=== PATIENT | male | born 1930 | race Caucasian/White ===

== ENCOUNTER 2017-12-25 18:46 | Inpatient (IN) | payer OTHER ==
[~2017-12-25] VITALS: Ht 154.9 cm; Wt 66.7 kg
--- NOTE | ~2017-12-25 | PR ---
[place], [place] PROGRESS NOTE NAME: TEODORO BAE UNIT #: [id number] ROOM: 309 DOCTOR: LIZANDRO FULTON MD BIRTHDATE: [birth year] DOS: 12/31/2017 CHIEF COMPLAINT: "I didn't sleep last night. I guess I don't know what's up." SUMMARY OF THE VISIT: The patient was interviewed as he was resting quietly in bed. He reported to us that he did not sleep at all last night, although nursing documents that he slept 8-10 hours of uninterrupted sleep. He was rather vague, but still pleasant. He is fixated still on leaving and going home. He voiced no other complaints. There was no agitation or aggression, no mood debility, no hostility in anyway. He does appear to be tolerating the current medication regimen well and I see no sedation, somnolence, extrapyramidal symptoms or tardive dyskinesia. MENTAL STATUS: He is alert and oriented to person, place and that he knows he is in the hospital, but not to time. Mood does seem to be trending towards euthymia. Affect is more appropriate. There is no jin or hypomania. Short-term memory remains problematic. PLAN: I will maximize now the dose of the Exelon patch, bringing it from 9.5 to 13.3 mg a day. Continue to engage in individual and mcduffie milieu activity with the ultimate plan to return to the least restrictive environment when psychiatrically stable. LIZANDRO FULTON MD CM:PNTRANS [id number] LIZANDRO FULTON MD 01/01/18 0412 interface
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
--- NOTE | ~2017-12-25 | PR ---
[place], [place] PROGRESS NOTE NAME: TEODORO BAE UNIT #: [id number] ROOM: 309 DOCTOR: LIZANDRO FULTON MD BIRTHDATE: [birth year] DOS: 01/04/2018 CHIEF COMPLAINT: "Good morning doctor. Do I get to go soon?" SUMMARY OF THE VISIT: The patient was interviewed as he was sitting in his room once again. He engaged in brief superficial conversation that was pleasant. He voiced no complaints other than he wants to go home. MENTAL STATUS: He is alert and oriented to person, place, but not time. Mood is euthymic. Affect is appropriate. Speech rate and pattern is within normal limits with some sparsity of thought and processing issues. There is no hypomania, jin or psychosis. There is no agitation or aggression. He denies suicidal, homicidal, or self-injurious thoughts. Memory for short term events continues to be problematic. PLAN: I will maximize out the dose of Namenda, bringing it to 10 mg b.i.d. maintaining Exelon patch and other psychotropics, returning then to assisted living when stable. LIZANDRO FULTON MD CM:PNTRANS [phone] LIZANDRO FULTON MD 01/04/188 interface
--- NOTE | ~2017-12-25 | PR ---
[place], [place] PROGRESS NOTE NAME: TEODORO BAE UNIT #: [id number] ROOM: 309 DOCTOR: LIZANDRO FULTON MD BIRTHDATE: [birth year] DOS: 01/02/2018 CHIEF COMPLAINT: "I don't know. I am just going wherever you tell me to do." SUMMARY OF THE VISIT: The patient was interviewed as he was reading the newspaper in his room. He reported that he got up and got ready, had breakfast and is feeling well and is hopeful to go home soon or at least leave the hospital. He could not tell me how long he has been here and tends to still be very vague and disjointed in his thinking. He was pleasant, however. MENTAL STATUS: He is alert and oriented to person, place, not necessarily time. Mood does seem to be more euthymic. Affect is more appropriate. There is no jin, hypomania or psychosis. Memory for short-term events continues to be problematic, but otherwise he is intact. PLAN: We will engage in individual and mcduffie milieu activity. We will increase his Namenda to 10 mg a day to augment the effectiveness of the Exelon patch, returning to the least restrictive environment when psychiatrically stable. LIZANDRO FULTON MD CM:PNTRANS [id number] LIZANDRO FULTON MD 01/02/18 1418 interface
--- NOTE | ~2017-12-25 | PR ---
[place], [place] PROGRESS NOTE NAME: TEODORO BAE UNIT #: [id number] ROOM: 309 DOCTOR: LEEANN ARGUELLO DO BIRTHDATE: [birth year] DOS: 12/29/2017 CHIEF COMPLAINT: "I'm fine. Are you going to let me out of here?" SUMMARY OF VISIT: This is an 87-year-old male who was interviewed this morning in the lounge sitting and eating breakfast. The patient states that he slept well and per nursing staff, the patient did sleep 8 hours last night. They also stated that the patient's daughters who have power of commercial attorney want the patient to be placed in the senior living; however, the patient has voiced that he wants to go back home. When Dr. Canales spoke to the patient over the weekend, he states that the patient mentioned to him that he believes that his home appliances are talking to him and controlling him. When we prompted the patient today regarding his home situation, the patient states that a couple of his appliances do not work, but others worked okay. He did not mention anything regarding his appliances controlling his thoughts. He does believe that people are confabulating him and that someone does not want him here, but he is unable to express who that certain someone is. The patient states that he enjoys the food here and that it is excellent; however, they give a lot of food during mealtimes and he would like a toothpick. MENTAL STATUS EXAMINATION: The patient is alert and oriented to person and place. The patient's mood is depressed and flat affect. There is no jin or hypomania. There are no overt auditory or visual hallucinations, delusions or paranoia. Short-term memory is poor. PLAN: 1. Increase his Exelon patch to 9.5 mg daily. 2. Start Risperdal 0.5 mg b.i.d. 3. We will continue to engage patient in individual and mcduffie milieu activity, returning to the least restrictive environment when psychiatrically stable. Discharge will depend on medical and psychiatric status at that time. ADDENDUM Dr. Fulton 01/14/18 10:48 am: Above note reviewed. Agree with observations, recommendations, and overall treatment plan. Leeann Arguello DO [place], [place] PROGRESS NOTE NAME: TEODORO BAE UNIT #: [id number] ROOM: 309 DOCTOR: LEEANN ARGUELLO DO BIRTHDATE: [birth year] LIZANDRO FULTON MD CM:PNTRANS [phone] LEEANN ARGUELLO DO 01/14/18 1053 JUNG [email or web address].[email or web address]
--- NOTE | ~2017-12-25 | PR ---
[place], [place] PROGRESS NOTE NAME: TEODORO BAE UNIT #: [id number] ROOM: 309 DOCTOR: LIZANDRO FULTON MD BIRTHDATE: [birth year] DOS: 01/01/2018 CHIEF COMPLAINT: "Who is going to pay for this breakfast, and oh by the way I need a new toothbrush." SUMMARY OF THE VISIT: The patient was interviewed as he just sat down to eat breakfast. He engaged readily in conversation. He at times did appear rather perplexed and bewildered but overall did attempt to engage in normal conversation. There is still an air of confusion about him. There was no agitation, aggression or mood lability noted. Also, there was no medication side effects evident. There was no sedation, somnolence, extrapyramidal symptoms, tardive dyskinesia or any other side effect. MENTAL STATUS: He remains alert and oriented to person, place, but not necessarily time. Mood does seem to be trending towards euthymia. Affect is more appropriate. There is no jin, hypomania or gross psychotic symptoms noted. Short-term memory has gaps, otherwise he is intact. PLAN: I will go ahead and add Namenda 5 mg a day to augment the effectiveness of the Exelon patch, which is already maxed out at the 13.3 mg a day dosing. We will continue to engage in individual and mcduffie milieu activity with the ultimate plan to return to the least restrictive environment when psychiatrically stable. LIZANDRO FULTON MD CM:PNTRANS [id number] LIZANDRO FULTON MD 01/02/18 0314 interface
--- NOTE | ~2017-12-25 | PR ---
[place], [place] PROGRESS NOTE NAME: TEODORO BAE UNIT #: [id number] ROOM: 309 DOCTOR: LIZANDRO FULTON MD BIRTHDATE: [birth year] DOS: 01/03/2018 CHIEF COMPLAINT: "Oh good morning doctor, how are you." SUMMARY OF THE VISIT: The patient was interviewed as he was reading the newspaper once again in his room. He reported that he slept well, got up, had breakfast and then has been spending the rest of the morning in his room reading. He denies any other issues other than he is homesick and wants to leave. There is no agitation or aggression, no mood lability. MENTAL STATUS: He is alert and oriented to person, place, not time. Mood does seem to be trending towards euthymia. Affect is more appropriate. There is no jin, hypomania or gross psychotic symptoms. Short term memory continues to be problematic. PLAN: We will continue his current psychotropics, engage in individual and mcduffie milieu activity, discharging then to the assisted living where his is residing when stable. LIZANDRO FULTON MD CM:PNTRANS [phone] LIZANDRO FULTON MD 01/03/18 2356 interface
--- NOTE | ~2017-12-25 | PR ---
[place], [place] PROGRESS NOTE NAME: TEODORO BAE UNIT #: [id number] ROOM: 309 DOCTOR: LIZANDRO FULTON MD BIRTHDATE: [birth year] DOS: 12/28/2017 CHIEF COMPLAINT: "I don't want anything. I just want to be left alone." SUMMARY OF THE VISIT: The patient was interviewed as he was resting in bed. He stated he did not want to get up to have breakfast and just wanted to be left alone. He looks horribly depressed. His responses tend to be very short and simple. He does appear in addition to depressed, somewhat confused and disjointed in his thinking. MENTAL STATUS: He is alert and oriented to person, place, not necessarily time. Mood does seem to be depressed with flat constricted affect. He endorses multiple neurovegetative symptoms. There is no jin or hypomania. There are no overt auditory or visual hallucinations, delusions or paranoia. Short-term memory is poor. PLAN: Routine screening examination show him to have a low vitamin D level of 22.7, so I will augment with vitamin D 50,000 International Units weekly. I will start him on Exelon patch 4.6 mg daily to improve ADL maintenance, behavior and cognition. I will discontinue Lexapro in lieu of Remeron 15 mg at bedtime to improve sleep and appetite. Engage in individual and mcduffie milieu activities, returning then to the least restrictive environment when psychiatrically stable. LIZANDRO FULTON MD CM:PNTRANS [id number] LIZANDRO FULTON MD 12/29/17 0329 interface
--- NOTE | ~2017-12-25 | PR ---
[place], [place] PROGRESS NOTE NAME: TEODORO BAE UNIT #: [id number] ROOM: 309 DOCTOR: LIZANDRO FULTON MD BIRTHDATE: [birth year] DOS: 12/30/2017 CHIEF COMPLAINT: "I think these women are plotting against me, I don't belong here." SUMMARY OF THE VISIT: The patient was interviewed as he was sitting in the quiet room. He engaged readily in conversation. There is definitely an air of paranoia noted as he feels that there is a plot here specifically derived by the women on the unit. It is unclear whether he meant nurses or the female patients. He did when questioned about his own safety state that he had at times feels uneasy here and is fearful. He also states he does not belong here and wants to be able to go home soon. Nurses report that he is aware that he is getting the Risperdal in the morning and is now refusing it because of excess sedation. MENTAL STATUS: He is alert and oriented to person, place, but not necessarily time. Mood does still seem to be somewhat depressed with anxious overtones and paranoia and ideas of reference are present. Short term memory remains poor and he does process slowly. PLAN: I will change his Risperdal from 0.5 mg twice daily to her Risperdal M-Tab 1 mg at bedtime. I will try to keep the Risperdal just at bedtime at this point to eliminate the possibility of any daytime somnolence. We will engage in individual and mcduffie milieu activity, returning to the least restrictive environment when psychiatrically stable. LIZANDRO FULTON MD CM:PNTRANS [id number] LIZANDRO FULTON MD 12/30/17 2232 interface
[2017-12-26] MEDS ORDERED: LEXAPRO5 M1 PO (10:14)
[2017-12-26] MEDS ORDERED: TOPROL XL25 MG PO (10:17)
[2017-12-26] MEDS ORDERED: THERA-M1 EACH PO (10:18)
[2017-12-26] MEDS ORDERED: ZESTRIL5 MG PO (10:19)
[2017-12-26 12:01] VITALS: BP 124/72
[2017-12-26 12:02] VITALS: BP 124/72
[2017-12-26] MEDS ORDERED: CO Q-10200 MG PO (12:32)
[2017-12-26 20:10] VITALS: BP 127/73
[2017-12-27 07:38] VITALS: BP 138/70
[2017-12-27 08:13] LABS: BASO # 0.1 10*3/uL (0.0-0.1); BASO % 0.6 % (0.0-1.0); EOS # 0.4 10*3/uL (0.0-0.4); EOS % 4.6 % (1.0-4.0); HEMOGLOBIN 10.5 g/dl (14.0-18.0); LYMPH # 1.9 10*3/uL (1.3-4.4); LYMPH % 23.8 % (27.0-41.0); MEAN CELL VOLUME 99.7 fl (80.0-94.0); MEAN CORPUSCULAR HGB 32.7 pg (27.0-31.0); MEAN CORPUSCULAR HGB CONC 32.8 g/dl (33.0-37.0); MEAN PLATELET VOLUME 10.6 fl (9.6-12.3); MONO # 0.6 10*3/uL (0.1-1.0); NEUT % 63.2 % (47.0-73.0); PLATELET COUNT AUTOMATED 298 10*3/uL (130-400); RED BLOOD COUNT 3.21 10*6/uL (4.50-5.90); RED CELL DISTRI WIDTH 13.8 % (0-14.5); WHITE BLOOD COUNT 7.8 10*3/uL (4.8-10.8)
[2017-12-27 08:33] LABS: ALBUMIN 3.6 gm/dl (3.1-4.5); ALKALINE PHOSPHATASE 76 U/L (45-117); BUN 15 mg/dl (7-24); CHLORIDE 105 mmol/L (98-107); CHOLESTEROL 192 mg/dL (<200); CREATININE 0.92 mg/dL (0.70-1.30); HDL CHOLESTEROL 55 mg/dl (40-60); LDL CHOLESTEROL 118 mg/dL (9-159); POTASSIUM 4.7 mmol/L (3.5-5.1); SGOT/AST 26 IU/L (3-35); SGPT/ALT 35 U/L (12-78); SODIUM 142 mmol/L (136-145); TOTAL PROTEIN 6.9 gm/dL (6.4-8.2); TRIGLYCERIDES 95 mg/dl (<150); VLDL CHOLESTEROL 19 mg/dL (6-40)
[2017-12-27 09:24] LABS: VITAMIN D, 25-HYDROXY 22.7 ng/mL (30-100)
[2017-12-27 16:48] LABS: BILIRUBIN NEGATIVE (NEGATIVE); BLOOD NEGATIVE (NEGATIVE); CLARITY CLEAR (CLEAR); COLOR YELLOW (YELLOW); GLUCOSE NEGATIVE (NEGATIVE); KETONE NEGATIVE (NEGATIVE); LEUKO ESTERASE NEGATIVE (NEGATIVE); NITRITE NEGATIVE (NEGATIVE); PH 5.5 (5.0-9.0); SPECIFIC GRAVITY 1.025 (1.005-1.030); UROBILINOGEN 0.2 E.U./dl (0.2-1.0)
[2017-12-27 20:27] VITALS: BP 115/87
[2017-12-28 08:09] VITALS: BP 145/67
[2017-12-28 20:04] VITALS: BP 142/70
[2017-12-29 07:58] VITALS: BP 140/65
[2017-12-29 19:34] VITALS: BP 135/74
[2017-12-30 07:40] VITALS: BP 132/68
[2017-12-30 20:02] VITALS: BP 132/70
[2017-12-31 07:36] VITALS: BP 150/77
[2017-12-31 19:39] VITALS: BP 142/78
[2018-01-01 07:36] VITALS: BP 128/80
[2018-01-01 20:07] VITALS: BP 130/78
[2018-01-02 07:59] VITALS: BP 149/78
[2018-01-02 20:24] VITALS: BP 134/68
[2018-01-03 07:54] VITALS: BP 150/72
[2018-01-03] MEDS ORDERED: NAMENDA-5 PO (08:53)
[2018-01-03] MEDS ORDERED: RISPERIDONE M-TA1 MG BC (08:53)
[2018-01-03] MEDS ORDERED: ANIMAL SHAPES1 EAC2 PO (08:53)
[2018-01-03] MEDS ORDERED: EXELON13.3 MG/21 T (08:53)
[2018-01-03] MEDS ORDERED: MIRTAZAPINE15 M2 PO (08:53)
[2018-01-03] MEDS ORDERED: Vitamin D PO (08:53)
[2018-01-03 19:49] VITALS: BP 155/70
[2018-01-04 07:40] VITALS: BP 160/72
[2018-01-04 19:46] VITALS: BP 154/81
[2018-01-05 07:52] VITALS: BP 152/74
[2018-01-05] MEDS ORDERED: LISINOPRIL10 M1 PO (08:32)
[2018-01-05] MEDS ORDERED: VITAMIN D31000 UNIT PO (08:32)
== END 2018-01-05 14:53 | disposition home or self-care (01) | DRG 885 ==
LOC: 3N 18:46
PROVIDERS: Psychiatry & Neurology Psychiatry
DX: F33.3 Major depressive disorder, recurrent, severe with psychotic symptoms (principal); R45.851 Suicidal ideations; G30.9 Alzheimer's disease, unspecified; F02.80 Dementia in other diseases classified elsewhere, unspecified severity, without behavioral disturbance, psychotic disturbance, mood disturbance, and anxiety; E55.9 Vitamin D deficiency, unspecified; E78.5 Hyperlipidemia, unspecified; I10 Essential (primary) hypertension; Z82.3 Family history of stroke; Z82.49 Family history of ischemic heart disease and other diseases of the circulatory system; Z79.899 Other long term (current) drug therapy; Z88.6 Allergy status to analgesic agent; Z72.0 Tobacco use